=== PATIENT | female | born 1955 | race Caucasian/White ===

== ENCOUNTER 2019-10-04 16:50 | Observation (INO) | payer BC, SELFPAY ==
[2019-10-04] VITALS (8 sets, daily range): BP systolic 87–175; BP diastolic 41–100; PULSE 76–103; RESP 14–22; TEMP 36.2–36.4; O2SAT 90–97
--- NOTE | ~2019-10-04 | US_ITS ---
EXAMINATION: US venous doppler [facility] DATE: 10/06/2019 10:56 INDICATION: Shortness of breath. TECHNIQUE: Grayscale ultrasound images without and with compression and Doppler ultrasound images of the bilateral lower extremity veins were obtained. COMPARISON: Ultrasound 11/13/2014 FINDINGS: The visualized portions of right common femoral vein, profunda (deep) femoral vein, femoral vein, pop liteal vein, peroneal veins, posterior tibial veins, and greater saphenous vein outflow are patent. The visualized portions of left common femoral vein, profunda femoral vein, femoral vein, popliteal v ein, peroneal veins, posterior tibial veins, and greater saphenous vein outflow are patent. There is a moderate-sized left Gutierrez's cyst. IMPRESSION: 1. No deep venous thrombosis. 2. Moderate-sized left Gutierrez's cyst. Reviewed, dictated and finalized at location A.
--- NOTE | ~2019-10-04 | CT_ITS ---
EXAMINATION: CT abdomen pelvis w con EXAM DATE: 10/04/2019 19:28 INDICATION: Low abdominal pain, rectal bleeding. History diverticulitis. TECHNIQUE: Spiral CT of the abdomen and pelvis was performed following intravenous injection of 100 m L Omnipaque 350. Axial, coronal and sagittal images were reviewed. The dose-length product (DLP) fo r this examination was 1465.74 mGy-cm. The exposure was tailored according to patient size (auto mA exposure control), and iterative reconstruction (ASIR) was used as additional dose reduction techniqu e. Comparison is made to prior examination from 05/11/2016. FINDINGS: There is right adrenal gland 1.3 cm lesion unchanged, likely adenoma. Left adrenal gland, liver, spleen, pancreas are unremarkable. Gallbladder is unremarkable. No biliary obstruction. Por melia and splenic veins are patent. Kidneys enhance symmetrically. There is no hydronephrosis. The uterus is anteverted and morphologically normal. The bladder is unremarkable. There is no retroper itoneal or pelvic lymphadenopathy. There is mild scattered arteriosclerotic disease. The appendix is normal. The stomach and small bowel are unremarkable. There is rectosigmoid anastom osis site. There is mild to moderate scattered colonic diverticulosis with mild inflammation of the s igmoid colon, findings consistent with mild acute uncomplicated diverticulitis. No free intraperito ck gas. The heart is normal in size. There are no pericardial or pleural effusions. Left basila r subsegmental atelectasis. Left upper quadrant metallic artifact, surgical clips. There are no oste oblastic or osteolytic lesions identified. IMPRESSION: 1. Findings consistent with mild acute uncomplicated sigmoid diverticulitis. Reviewed, dictated and finalized at location A.
--- NOTE | ~2019-10-04 | CT_ITS ---
CORRECTED REPORT amount of contrast changed from 100cc to 200cc 10/07/2019 [facility] [place]: CTA chest PE protocol EXAM DATE: 10/06/2019 10:18 INDICATION: Shortness of breath. TECHNIQUE: Spiral CTA of the chest (pulmonary arteries) was performed with 200 cc Omnipaque 350 intravenous contrast injection. Images were acquired during the pulmonary arterial phase. Coronal maximum intensity projection 3D- reconstructions were created by the technologist on dedicated workstation. Axial, coronal and sagittal reformatted images were reviewed. The dose-length product (DLP) for this examination was 1048.48 mGy-cm. The exposure was tailored according to patient size (auto mA exposure control), and iterative reconstruction (ASIR) was used as additional dose reduction technique. Comparison is made to prior examination from 07/07/2019. FINDINGS: Pulmonary arteries are well opacified and without intraluminal filling defects. There is lingular subsegmental atelectasis, bilateral lower lobe subsegmental atelectasis. Small amount of left lower lobe endobronchial debris. No thoracic aortic dissection. There are no pleural or pericardial effusions. There is mild to moderate emphysema. There is no mediastinal, hilar or axillary lymphadenopathy. There is no pneumothorax. There is cardiomegaly. Gastroesophageal surgical changes. No evidence of coronary arterial calcification. Upper abdomen is unremarkable. Again there is mixed sclerotic focus within the T7 vertebral body not significantly changed. IMPRESSION: 1. No pulmonary emboli. 2. Interval development of segmental left basilar atelectasis, some endobronchial debris. 3. Right basilar subsegmental atelectasis. 4. Cardiomegaly. 5. Mild to moderate emphysema. 6. Vague T7 sclerotic focus unchanged. Can't exclude osteoblastic disease. Reviewed, dictated and finalized at location B. MTDD IMPRESSION: 1. No pulmonary emboli. 2. Interval development of segmental left basilar atelectasis, some endobronch ial debris. 3. Right basilar subsegmental atelectasis. 4. Cardiomegaly. 5. Mild to moderate emphysema. 6. Vague T7 sclerotic focus unchanged. Can't exclude osteoblastic disease.
--- NOTE | 2019-10-04 17:04 | ED.GIBLEED ---
HPI - GI Bleed General Chief complaint: GI Bleed Stated complaint: GI bleed Time Seen by Provider: 10/04/19 16:50 Source: patient and family Mode of arrival: ambulatory Limitations: no limitations History of Present Illness HPI Narrative: 54-year-old woman comes in today complaining of passing Blood and blood clots today. Patient states that she has had some low abdominal pain that feels like period cramps and gas. she has had some lightheadedness with it. She denies fever, vomiting, diarrhea, hematochezia, melena, and ingestion of blood thinners except ASA 81 mg daily. MD complaint: gross hematochezia Onset (ago): hour(s) (2) Pain Consistency: constant Severity: moderate Relieving factors: none Exacerbating factors: none Associated symptoms: abdominal pain Treatments Prior to Arrival: none Related Data Home Medications Medication Instructions Recorded Confirmed alprazolam 0.5 mg PO PRN 10/04/19 10/04/19 amitriptyline 25 mg PO DAILY 10/04/19 10/04/19 gabapentin 300 mg PO TID 10/04/19 10/04/19 levothyroxine 137 mcg PO DAILY 10/04/19 10/04/19 lovastatin 40 mg PO DAILY 10/04/19 10/04/19 Allergies Allergy/AdvReac Type Severity Reaction Status Date / Time metronidazole AdvReac Unknown CHEMICAL Unverified 11/20/16 14:20 NEUROPATHY Review of Systems Constitutional: Constitutional: Denies chills, Reports fatigue, Denies fever(s) and Reports weakness Eyes: Eyes: Denies change in vision and Denies photophobia ENT: Denies dysphagia, Denies nasal congestion and Denies sore throat Cardiovascular: Cardiovascular: Denies chest pain and Denies radiating jaw, neck or arm pain Respiratory: Respiratory: Reports cough and Denies dyspnea Gastrointestinal: Gastrointestinal: Reports as per HPI, Reports abdominal pain, Denies diarrhea, Denies nausea and Denies vomiting Genitourinary: Genitourinary: Denies nocturia and Denies dysuria Musculoskeletal: Musculoskeletal: Denies arthralgias and Denies joint swelling Integumentary/Breasts: Skin/Breast: Denies pruritus, Denies erythema and Denies rash Neurologic: Denies vertigo, Reports dizziness and Denies syncope Psychiatric: Psychiatric: Denies anxiety and Denies depression Endocrine: Endocrine: Denies polydipsia and Denies polyuria Hematologic/Lymphatic: Hematologic/Lymphatic: Denies easy bleeding and Denies easy bruising Allergic/Immunologic: Allergic/Immunologic: Denies lip swelling and Denies wheezing PMFSH Past Medical History Medical History Anxiety Chronic pain Diverticulitis Dyslipidemia Hypothyroidism Incidental lung nodule LLL Peripheral neuropathy Metronidazole Surgical History Surgical History H/O cervical spine surgery H/O colectomy H/O rotator cuff surgery Right History of gastric stapling Family History Family History Other Family history of malignant neoplasm Hypertension Social History Social History Smoking status: Current every day smoker Alcohol intake: never Substance use: never Living arrangements: with family Exam Const: General: alert Nutritional Appearance: obese Orientation/consciousness: patient oriented x3 Other: moderate acute distress HENMT: Ears: external ears normal, TM's normal bilaterally and EAC's normal Mouth: Yes Normal oral and palatal mucosa present and Yes moist mucous membranes Throat: uvula midline Other: diffuse pharyngeal erythema without masses, swelling or exudate. Eyes: Conjunctivae: conjunctivae normal Pupils: Equal, round and reactive pupils present EOM: EOMs intact bilaterally Neck: Neck: no lymphadenopathy Resp: Effort & Inspection: normal respiratory effort and not labored Auscultation: clear to auscultation bilaterally, no rales, no rhonchi and no
[2019-10-04] MEDS: PANTOPRAZOLE SODIUM IV 40 MG VIAL 80 MG IV PUSH (17:46)
[2019-10-04] MEDS: HYDROMORPHONE HCL 2 MG/ML VIAL 0.5 MG IV PUSH (17:47)
[2019-10-04] MEDS: ONDANSETRON INJ 4 MG/2 ML VIAL IV PUSH (17:47)
[2019-10-04] MEDS: SODIUM CHLORIDE 0.9% IV 1,000 ML 999 ML IV CONT (17:48)
[2019-10-04 18:06] LABS: Basophils Absolute Auto 0.07 K/mm3 (0.00-0.10); Basophils Percent Auto 0.7 % (0.0-1.0); Eosinophils Absolute Auto 0.17 K/mm3 (0.02-0.50); Eosinophils Percent Auto 1.7 % (1.0-6.0); Hematocrit 56.3 % (35.0-49.0); Hemoglobin 18.1 g/dL (12.0-15.0); Immature Granulocyte Absolute 0.03 K/mm3 (0.00-0.00); Immature Granulocyte Percent A 0.3 % (0.0-0.0); Lymphocytes Absolute Auto 2.22 K/mm3 (1.10-4.50); Lymphocytes Percent Auto 21.8 % (18.0-42.0); Mean Corpuscular HGB Conc 32.1 g/dL (32.0-36.0); Mean Corpuscular Hemoglobin 28.7 pg (27.0-31.0); Mean Corpuscular Volume 89.2 fL (78.0-102.0); Mean Platelet Volume 13.2 fl (9.2-11.8); Monocytes Absolute Auto 0.68 K/mm3 (0.10-0.90); Monocytes Percent Auto 6.7 % (2.0-11.0); Neutrophils Percent Auto 68.8 % (50.0-70.0); Platelet Count Result 289 K/mm3 (150-420); Red Blood Count 6.31 M/mm3 (4.20-5.40); Red Cell Distribution Width 14.1 % (11.6-14.4); White Blood Count 10.2 K/mm3 (4.8-10.8)
[2019-10-04 18:42] LABS: Alanine Aminotransferase 15 U/L (14-59); Albumin Level 2.7 g/dL (3.4-5.0); Alkaline Phosphatase 73 U/L (46-116); Anion Gap 8.3 mmol/L (7-16); Aspartate Amino Transferase 16 U/L (15-37); Bilirubin,Total 0.3 mg/dL (0.00-1.00); Blood Urea Nitrogen 12 mg/dL (7-18); Calcium 7.8 mg/dL (8.5-10.1); Carbon Dioxide 31 mmol/L (21-32); Chloride 104 mmol/L (98-108); Estimated CRCL calculation 90 ml/min; Estimated Glomerular Filt Rate > 60; Glucose 93 mg/dL (70-99); Lipase 83 U/L (73-393); Osmolality Calculated 287 mOsm/kg (285-295); Potassium 4.3 mmol/L (3.5-5.1); Sodium 139 mmol/L (136-145); Total Protein 6.9 g/dL (6.4-8.2)
--- NOTE | 2019-10-04 19:06 | PC.NURSE ---
PT TAKEN TO RADIOLOGY VIA WHEELCHAIR FOR CT SCAN AT THIS TIME
[2019-10-04] MEDS: SODIUM CHLORIDE 0.9% IV 1,000 ML 150 ML IV CONT (20:24)
--- NOTE | 2019-10-04 20:45 | PC.NURSE ---
RN REQUESTED OBS BED AT 2001. ROOM 210 PROVIDED BY [employer]. REGISTRATION NOTIFIED. RN ATTEMPTED TO CALL REPORT AT 2016, RN UNAVAILABLE. MELISSA ZURITA RECEIVED REPORT AT 2039
[2019-10-05] VITALS (17 sets, daily range): BP systolic 83–113; BP diastolic 22–60; PULSE 68–98; RESP 16–20; TEMP 36.2–37.1; O2SAT 75–97; BMI 55.6
[2019-10-05] MEDS: SODIUM CHLORIDE 0.9% IV 1,000 ML 999 ML IV CONT (00:19)
[2019-10-05 00:43] LABS: Hematocrit 51.9 % (35.0-49.0); Hemoglobin 15.9 g/dL (12.0-15.0)
[2019-10-05 02:08] LABS: Troponin I < 0.02 ng/mL (0.00-0.056)
[2019-10-05 02:09] LABS: Lactic Acid 0.7 mmol/L (0.4-2.0)
--- NOTE | 2019-10-05 02:38 | ADMGEN ---
This patient, Michelle Dallas, was admitted to 2nd Floor Room 210-2. Patient oriented to hospital policies and general routines including ID bracelet, bed and alarms, visiting hours, pain management, procedures, bathroom and other care routines, personal items, smoking policy, room service/diet, and visiting hours. Valuables includes purse with belongings inside (patient would not say), sweater, clothes, cell phone. Information on how to activate the Rapid Response Team has been discussed. Patient are encouraged to report perceived risks to care and to ask questions if they do not understand what they are told or what they should do.
--- NOTE | 2019-10-05 03:00 | PC.NURSE ---
0236 Dr. Marx gave orders to call him if systolic blood pressures are less than 90.
[2019-10-05] MEDS: SODIUM CHLORIDE 0.9% IV 1,000 ML 150 ML IV CONT ×3 (04:54→19:18)
[2019-10-05 05:11] LABS: Basophils Absolute Auto 0.06 K/mm3 (0.00-0.10); Basophils Percent Auto 0.6 % (0.0-1.0); Eosinophils Absolute Auto 0.15 K/mm3 (0.02-0.50); Eosinophils Percent Auto 1.6 % (1.0-6.0); Hematocrit 51.4 % (35.0-49.0); Hemoglobin 15.6 g/dL (12.0-15.0); Immature Granulocyte Absolute 0.03 K/mm3 (0.00-0.00); Immature Granulocyte Percent A 0.3 % (0.0-0.0); Lymphocytes Absolute Auto 1.42 K/mm3 (1.10-4.50); Lymphocytes Percent Auto 14.9 % (18.0-42.0); Mean Corpuscular HGB Conc 30.4 g/dL (32.0-36.0); Mean Corpuscular Hemoglobin 28.2 pg (27.0-31.0); Mean Corpuscular Volume 92.8 fL (78.0-102.0); Mean Platelet Volume 11.2 fl (9.2-11.8); Monocytes Absolute Auto 0.74 K/mm3 (0.10-0.90); Monocytes Percent Auto 7.8 % (2.0-11.0); Neutrophils Absolute Auto 7.1 K/mm3 (1.7-7.2); Neutrophils Percent Auto 74.8 % (50.0-70.0); Platelet Count Result 223 K/mm3 (150-420); Red Blood Count 5.54 M/mm3 (4.20-5.40); Red Cell Distribution Width 14.1 % (11.6-14.4); White Blood Count 9.5 K/mm3 (4.8-10.8)
[2019-10-05 05:25] LABS: Alanine Aminotransferase 14 U/L (14-59); Albumin Level 2.7 g/dL (3.4-5.0); Alkaline Phosphatase 74 U/L (46-116); Anion Gap 6.7 mmol/L (7-16); Aspartate Amino Transferase 16 U/L (15-37); Bilirubin,Total 0.4 mg/dL (0.00-1.00); Blood Urea Nitrogen 12 mg/dL (7-18); Calcium 7.6 mg/dL (8.5-10.1); Carbon Dioxide 33 mmol/L (21-32); Chloride 103 mmol/L (98-108); Estimated CRCL calculation 75 ml/min; Estimated Glomerular Filt Rate 55; Glucose 109 mg/dL (70-99); Osmolality Calculated 286 mOsm/kg (285-295); Potassium 4.7 mmol/L (3.5-5.1); Sodium 138 mmol/L (136-145); Total Protein 6.8 g/dL (6.4-8.2)
[2019-10-05] MEDS: LEVOTHYROXINE SODIUM 25 MCG TABLET PO (05:42)
[2019-10-05] MEDS: LEVOTHYROXINE SODIUM 112 MCG TABLET PO (05:42)
--- NOTE | 2019-10-05 06:38 | PC.NURSE ---
Patient to/from bathroom with one assist with slightly unsteady gait. Urine yellow. IV NS infusing to site in left thumb without difficulty. Call light in reach.
--- NOTE | 2019-10-05 07:30 | PC.NURSE ---
Taking po fluids well, no stools at this time, no evidence or complaint at pain
--- NOTE | 2019-10-05 07:47 | PC.NURSE ---
noted to have o2 off when entered room for assessment, room air sat 75%, oxygen re applied at 2L NC, increase to 85%, increased oxygen to 3L NC, sats at 90%, loose productive cough at times, fluids infusing, given white soda per request
--- NOTE | 2019-10-05 08:30 | PC.NURSE ---
Tolerated clear liquid breakfast, ate about 50%, no stools at this time, no compalint of pain at this time
[2019-10-05] MEDS: GABAPENTIN 300 MG CAPSULE PO ×3 (09:29→17:43)
[2019-10-05] MEDS: AMITRIPTYLINE HCL 25 MG TABLET PO (09:29)
[2019-10-05] MEDS: LOVASTATIN 20 MG TABLET 40 MG PO (09:29)
--- NOTE | 2019-10-05 09:32 | PM.IMHP ---
H&P: HPI History of Present Illness Chief complaint: GI bleed Narrative: Michelle Dallas is a 64 year old female admitted overnight for GI bleeding with gross hematochezia. Reports abdominal pain, Denies diarrhea, Denies nausea and Denies vomiting. Carolyne was admitted around 5:15 p.m. yesterday evening. Michelle came in complaining of passing blood and blood clots. Patient stated that she has had some low abdominal pain that feels like period cramps and gas. She has had some lightheadedness with it. She denies fever, vomiting, diarrhea, hematochezia, melena, and ingestion of blood thinners except ASA 81 mg daily. Her aspirin is currently held. She was started on IV fluids, IV Zosyn, given a dose of Protonix IV, and started on a clear liquid diet. She is a current smoker. At admission yesterday her heart rate was 103 her SpO2 was 91% and she was placed on 2 L nasal cannula where her SpO2 improved to 97%. This morning her O2 sats showed 75-90% and she was placed on 3 L nasal cannula. This morning when he went to see her; she had a headache, she had some mild left lower quadrant pain with palpitation, and no further output or stools since her home output of bloody diarrhea. She was convinced that her Mucinex that she had been taking for 1-2 weeks for a cold and upper respiratory infection had caused this. I informed her that was not likely the case. We started talking some more and I discovered that she has been using ibuprofen more than once or twice a day on a regular basis for pain control. She also stated that she was told to use tramadol instead of her Vicodin, she was informed by another physician that the Tramadol would be easier on her GI system. I have started her on Protonix IV twice a day, educated her that Tylenol extra-strength and lidocaine patches would be best at this time for pain control. We will continue to use continuous IV hydration at 150 miles an hour to further hydrate her since her CBC and other lab work is showing that she is still not at optimal hydration. Her blood pressures were also low with systolics in the 80s and 90s overnight despite having an admission blood pressure of 158/100. She stated that she did not get any sleep and had a headache because they were checking her blood pressure every 2 hours. Now that her blood pressure has improved we can check her blood pressure every 4 hours. Also continue her IV fluids at 150 ml/ hour and discontinue that for the morning so she does not become fluid overloaded. She stated that years ago when she had the colon resection was the only time she required diuretics. She reports having a colonoscopy with Dr. Garcia approximately 2 years ago and remembers that he said she was clear for having another colonoscopy for 10 years. She believes that Dr. Yumiko Wetzel of [facility] completed her colon resection many years ago, but thinks that the surgeon moved to [facility]. I have ordered CBCs and BMPs every 12 hours starting at 8:00 p.m. tonpadilla, her H&H this morning was 15.6/51.4 her white count was 9.5 and her platelets was 223. her potassium was 4.7 her creatinine was 1.01 her liver function studies were within normal limits and her troponin was normal her lipase was normal at 83. I have also ordered a TSH, Mag, and Phos level. her CT abdomen pelvis showed left basilar atelectasis with moderate scattered diverticulosis and inflammation of the sigmoid colon. As well as evidence of past surgery. The radiologist read this as uncomplicated sigmoid diverticulitis. She told me she had a colon resection around 2013 and gastric stapling in the 1970s or 1980s. No other history of GI bleed or output like this per patient report, and she denies ever vomiting or coughing up blood as well. Ordered her DuoNebs and Incentive Spirometry to improve her atelectasis. She has urine and blood cultures pending, also ordered sputum culture to be collected. Today she has tolerated her clear liquid diet
--- NOTE | 2019-10-05 09:39 | PC.NURSE ---
Resting quietly in bed, sleeping at intervals, no evidence of pain, fluids infusing
[2019-10-05] MEDS: PANTOPRAZOLE SODIUM IV 40 MG VIAL IV PUSH ×2 (10:06→20:29)
--- NOTE | 2019-10-05 10:08 | PC.NURSE ---
Protonix given IVP, no complaints, sleeping, tolerating po fluids, n/v
[2019-10-05] MEDS: BENZONATATE 100 MG CAPSULE 200 MG PO ×3 (10:43→17:43)
[2019-10-05] MEDS: ACETAMINOPHEN 500 MG TABLET 1000 MG PO (10:45)
--- NOTE | 2019-10-05 10:48 | PC.NURSE ---
headache with cough, tylenol given, tolerating oral fluids, no bloody stool, educated on need for sputum sample
--- NOTE | 2019-10-05 11:36 | PC.NURSE ---
SBA up to bathroom, gait steady, uses end of bed to steady self when walking
--- NOTE | 2019-10-05 12:20 | PC.NURSE ---
Tolerating PO fluids, voiding with no BM since admit
[2019-10-05] MEDS: IPRATROPIUM 0.5 MG/ALBUTEROL SULFATE 2.5 MG AMPUL.NEB 3 ML INHALATION ×2 (12:32→17:44)
--- NOTE | 2019-10-05 13:23 | PC.NURSE ---
Ate well for lunch, tolerated po fluids
--- NOTE | 2019-10-05 14:16 | PC.NURSE ---
Tolerating po fluids, sleeping at intervals, did not sleep well through night, fluids infusing, occassional loose productive cough noted
--- NOTE | 2019-10-05 15:34 | PC.NURSE ---
Assisted up to void
--- NOTE | 2019-10-05 16:30 | PC.NURSE ---
napping, no distress, tolerating oral fluids, no bm since admit
--- NOTE | 2019-10-05 17:30 | PC.NURSE ---
Ate 100% of full liquid tray, resting quietly, asked about how blood pressures have been and educated on what was taken throughout the day, no need to take every hour tonight, patient relieved to hear this, did not sleep much due to being woke all night long
--- NOTE | 2019-10-05 18:38 | PC.NURSE ---
Resting in bed, denies needs, fluids infusing, no BM this shift
[2019-10-05 20:08] LABS: Hematocrit 49.7 % (35.0-49.0); Hemoglobin 14.9 g/dL (12.0-15.0); Mean Corpuscular Hemoglobin 28.3 pg (27.0-31.0); Mean Corpuscular Volume 94.5 fL (78.0-102.0); Mean Platelet Volume 11.1 fl (9.2-11.8); Platelet Count Result 204 K/mm3 (150-420); Red Blood Count 5.26 M/mm3 (4.20-5.40); Red Cell Distribution Width 14.2 % (11.6-14.4); White Blood Count 7.8 K/mm3 (4.8-10.8)
[2019-10-05 20:27] LABS: BNP 17.9 pg/mL (0-100)
[2019-10-05 20:30] LABS: Anion Gap 4.3 mmol/L (7-16); Blood Urea Nitrogen 10 mg/dL (7-18); Calcium 7.1 mg/dL (8.5-10.1); Carbon Dioxide 34 mmol/L (21-32); Chloride 103 mmol/L (98-108); Estimated CRCL calculation 75 ml/min; Estimated Glomerular Filt Rate 55; Glucose 110 mg/dL (70-99); Osmolality Calculated 284 mOsm/kg (285-295); Phosphorus 3.1 mg/dL (2.6-4.7); Potassium 4.3 mmol/L (3.5-5.1); Sodium 137 mmol/L (136-145)
[2019-10-05 20:31] LABS: Magnesium 1.9 mg/dL (1.8-2.4); Thyroid Stimulating Hormone 2.76 uIU/mL (0.36-3.74)
--- NOTE | 2019-10-05 21:07 | P.PNCROSS_ITS ---
Event Note Event Note Event Note: For this patient encounter, I reviewed the [employer] documentation, treatment plan, and medical decision making; and I had [id number] time with this patient. Pt. states her LLQ pain felt crampy and resolved after defecation/passing a clot. CT c/w diverticulitis which is being treated (but generally is not attributed to hematochezia). Obese abdomen. No focal LLQ tenderness on exam. Agree with plan of antibiotics and monitoring hgb/hct. Re-eval tomorrow.
[2019-10-06] VITALS (12 sets, daily range): BP systolic 115; BP diastolic 51; PULSE 60–87; RESP 16–20; TEMP 36.9; O2SAT 85–92
[2019-10-06] MEDS: IPRATROPIUM 0.5 MG/ALBUTEROL SULFATE 2.5 MG AMPUL.NEB 3 ML INHALATION ×3 (00:25→12:33)
--- NOTE | 2019-10-06 02:26 | PC.NURSE ---
Patient talking to this nurse about her son dying of drug overdose in November of 2018. Patient says she's still having a really hard time with his loss and would like some information/resources of someone to talk to, maybe to call, when she's really feeling down. This nurse told patient that she would have social worker clinical talk with her today.
[2019-10-06] MEDS: ALPRAZOLAM 0.5 MG TABLET PO (03:16)
--- NOTE | 2019-10-06 03:28 | PC.NURSE ---
Patient complaining of IV site to left thumb hurting badly. No sign of leaks, infiltrates, dislodgement of IV catheter noted. Patient insistent that the IV catheter be removed. Site discontinued per patients request. Catheter intact and no bleeding from site when catheter removed. Pressure held x1 minute and then pressure bandage applied. Patient tolerated well.
[2019-10-06 05:44] LABS: Hematocrit 45.3 % (35.0-49.0); Hemoglobin 13.9 g/dL (12.0-15.0); Mean Corpuscular HGB Conc 30.7 g/dL (32.0-36.0); Mean Corpuscular Hemoglobin 28.4 pg (27.0-31.0); Mean Corpuscular Volume 92.6 fL (78.0-102.0); Mean Platelet Volume 11.4 fl (9.2-11.8); Platelet Count Result 187 K/mm3 (150-420); Red Blood Count 4.89 M/mm3 (4.20-5.40); Red Cell Distribution Width 14.1 % (11.6-14.4); White Blood Count 8.4 K/mm3 (4.8-10.8)
[2019-10-06 06:01] LABS: BNP 53.1 pg/mL (0-100)
[2019-10-06] MEDS: LEVOTHYROXINE SODIUM 25 MCG TABLET PO (06:01)
[2019-10-06] MEDS: LEVOTHYROXINE SODIUM 112 MCG TABLET PO (06:01)
[2019-10-06] MEDS: ACETAMINOPHEN 500 MG TABLET 1000 MG PO (06:04)
--- NOTE | 2019-10-06 06:09 | PC.NURSE ---
Patient given Tylenol 1000mg for headache rated @ 8 on 0-10 scale. Patient took that and scheduled meds without difficulty. Call light in reach.
[2019-10-06 09:14] LABS: D Dimer 1.17 mg/L (0.19-0.50)
--- NOTE | 2019-10-06 09:30 | PC.NURSE ---
Patient transported off of floor via wheelchair for CTA
--- NOTE | 2019-10-06 10:31 | PC.NURSE ---
Patient transported back to floor via wheelchair from xray
[2019-10-06] MEDS: LOVASTATIN 20 MG TABLET 40 MG PO (10:35)
[2019-10-06] MEDS: GABAPENTIN 300 MG CAPSULE PO (10:36)
[2019-10-06] MEDS: BENZONATATE 100 MG CAPSULE 200 MG PO (10:36)
[2019-10-06] MEDS: AMITRIPTYLINE HCL 25 MG TABLET PO (10:36)
[2019-10-06] MEDS: PANTOPRAZOLE SODIUM IV 40 MG VIAL IV PUSH (11:07)
--- NOTE | 2019-10-06 11:14 | HOMEO2EVAL ---
Home Oxygen Evaluation RC: Home Oxygen (O2) Evaluation Start: 10/06/19 08:52 Freq: ONCE Status: Active Protocol: RPE Activity Type Activity Date Activity User E-Sign Co-Sign Detail Recorded Client Recorded Date Recorded By Document 10/06/19 10:55 SJB [id number] 10/06/19 11:14 SJB Document 10/06/19 10:56 SJB [id number] 10/06/19 11:14 SJB Document 10/06/19 10:58 SJB [id number] 10/06/19 11:14 SJB Document 10/06/19 11:05 SJB [id number] 10/06/19 11:14 SJB 10/06/19 10/06/19 10/06/19 10:55 10:56 10:58 Home O2 Evaluation Test Phase Resting Resting Exercise Oxygen Delivery Room Air Nasal Cannula Nasal Cannula Oxygen Flow Rate (L/min) 2 2 Pulse Oximetry (90-100 %) 88 L 92 88 L Pulse Rate (60-100 beats/min) 71 70 78 Activity Tolerance Good Rating of Perceived Dyspnea (PD) +2 Mild, Some Difficulty, Noticeable to the Observer Rate of Perceived Exertion (PE) 9 Very light Ambulation Distance (feet) 100 Home Oxygen Evaluation Comments Treatment Charges O2 Evaluation 10/06/19 11:05 Home O2 Evaluation Test Phase Exercise Oxygen Delivery Nasal Cannula Oxygen Flow Rate (L/min) 3 Pulse Oximetry (90-100 %) 92 Pulse Rate (60-100 beats/min) 83 Activity Tolerance Good Rating of Perceived Dyspnea (PD) +2 Mild, Some Difficulty, Noticeable to the Observer Rate of Perceived Exertion (PE) 12 Ambulation Distance (feet) 300 Home Oxygen Evaluation Comments Walked pushing wheelchair with no rests. Jessica well. PLB encouraged. Oxygen titrated from 2-3 lpm to maintain Sp02 of 92%. Treatment Charges
--- NOTE | 2019-10-06 12:30 | P.DS_ITS ---
DS: Diagnosis Admitting Diagnosis Admitting Diagnosis: Melena Discharge Diagnosis (1) Acute GI bleeding: Onset Date: ~10/04/19 Code(s): K92.2 - Gastrointestinal hemorrhage, unspecified Status: Acute Assessment and Plan: * possibly secondary to internal hemorrhoids versus GI bleed due to ibuprofen * hemoglobin on discharge day 13.9 hematocrit 45.3. * Patient denies abdominal pain at this time . * Patient educated on the use of ibuprofen in GI bleed. * Patient informed that in 2017 colonoscopy indicated internal hemorrhoids. * Hemoglobin currently at 13.9, no obvious bleeding noted. * Contacted Dr. Garcia her GI doctor, would like for patient to call his office and make an appointment. * will repeat a hemoglobin in 2 days and send results to Dr. Garcia and Dr. Cerrato. * Patient tolerating meals. * TSH, Mag in phosphate level within normal limits. * Patient will discharge home with Protonix , Augmentin and probiotic. * Patient with a history of colon resection in 2013 at [facility] * CT abdomen pelvis showed left basilar atelectasis with moderate scattered diverticulosis and inflammation of the sigmoid colon. (2) Diverticulitis: Onset Date: ~10/04/19 Code(s): K57.92 - Diverticulitis of intestine, part unspecified, without perforation or abscess without bleeding Status: Acute Assessment and Plan: * left lower quadrant pain has resolved. * patient will discharge with follow-up appointment with Dr. Garcia. * patient will discharge with Protonix, Augmentin and probiotics * patient instructed to consume a high-fiber diet. * patient instructed to Avoid nuts and peanuts if necessary . (3) Dehydration: Onset Date: ~10/04/19 Code(s): E86.0 - Dehydration Status: Acute Assessment and Plan: * resolved * patient received IV fluid while here * patient tolerating meals (4) Atelectasis, left: Onset Date: Unknown Code(s): J98.11 - Atelectasis Status: Acute Assessment and Plan: * possibly secondary to emphysema patient with discharge with Symbicort and ProAir * current smoker. * patient requires home O2 * BNP within normal limits (5) Emphysema of lung: Code(s): J43.9 - Emphysema, unspecified Status: Acute Assessment and Plan: * CTA a indicates- mild to moderate emphysema. * Patient will discharge with inhaler ProAir and Symbicort * Patient instructed to consult ceramic coater. * Patient will follow-up with PCP. * Home O2 evaluation indicates that patient needs continuous 2-3 L oxygen to maintain sats greater than 90%. * CTA and Doppler negative for PE or DVT. (6) Hypoxia: Code(s): R09.02 - Hypoxemia Status: Acute Assessment and Plan: * secondary to emphysema, patient newly diagnosed * CTA indicates emphysema * patient is a current smoker. * Patient educated on smoking cessation. * Home O2 evaluation completed determined that patient needs 2-3 L nasal cannula continuously. * oxygen ordered. * CTA and Doppler negative for PE or DVT. * Patient was discharged with inhaler. * Patient instructed to follow-up with PCP for pulmonary consult. (7) Hemorrhage: Code(s): R58 - Hemorrhage, not elsewhere classified Status: Acute Assessment and Plan: * patient will follow-up with Dr. Garcia. * Patient will discharge with phenylephrine suppositories. * Repeat hemoglobin hematocrit in 2
--- NOTE | 2019-10-06 12:30 | PM.DS ---
DS: Diagnosis Admitting Diagnosis Admitting Diagnosis: Melena Discharge Diagnosis (1) Acute GI bleeding: Onset Date: ~10/04/19 Code(s): K92.2 - Gastrointestinal hemorrhage, unspecified Status: Acute Assessment and Plan: possibly secondary to internal hemorrhoids versus GI bleed due to ibuprofen hemoglobin on discharge day 13.9 hematocrit 45.3. Patient denies abdominal pain at this time . Patient educated on the use of ibuprofen in GI bleed. Patient informed that in 2017 colonoscopy indicated internal hemorrhoids. Hemoglobin currently at 13.9, no obvious bleeding noted. Contacted Dr. Garcia her GI doctor, would like for patient to call his office and make an appointment. will repeat a hemoglobin in 2 days and send results to Dr. Garcia and Dr. Cerarto. Patient tolerating meals. TSH, Mag in phosphate level within normal limits. Patient will discharge home with Protonix , Augmentin and probiotic. Patient with a history of colon resection in [address] at [facility] CT abdomen pelvis showed left basilar atelectasis with moderate scattered diverticulosis and inflammation of the sigmoid colon. (2) Diverticulitis: Onset Date: ~10/04/19 Code(s): K57.92 - Diverticulitis of intestine, part unspecified, without perforation or abscess without bleeding Status: Acute Assessment and Plan: left lower quadrant pain has resolved. patient will discharge with follow-up appointment with Dr. Garcia. patient will discharge with Protonix, Augmentin and probiotics patient instructed to consume a high-fiber diet. patient instructed to Avoid nuts and peanuts if necessary . (3) Dehydration: Onset Date: ~10/04/19 Code(s): E86.0 - Dehydration Status: Acute Assessment and Plan: resolved patient received IV fluid while here patient tolerating meals (4) Atelectasis, left: Onset Date: Unknown Code(s): J98.11 - Atelectasis Status: Acute Assessment and Plan: possibly secondary to emphysema patient with discharge with Symbicort and ProAir current smoker. patient requires home O2 BNP within normal limits (5) Emphysema of lung: Code(s): J43.9 - Emphysema, unspecified Status: Acute Assessment and Plan: CTA a indicates- mild to moderate emphysema. Patient will discharge with inhaler ProAir and Symbicort Patient instructed to consult warehouse specialist. Patient will follow-up with PCP. Home O2 evaluation indicates that patient needs continuous 2-3 L oxygen to maintain sats greater than 90%. CTA and Doppler negative for PE or DVT. (6) Hypoxia: Code(s): R09.02 - Hypoxemia Status: Acute Assessment and Plan: secondary to emphysema, patient newly diagnosed CTA indicates emphysema patient is a current smoker. Patient educated on smoking cessation. Home O2 evaluation completed determined that patient needs 2-3 L nasal cannula continuously. oxygen ordered. CTA and Doppler negative for PE or DVT. Patient was discharged with inhaler. Patient instructed to follow-up with PCP for pulmonary consult. (7) Hemorrhage: Code(s): R58 - Hemorrhage, not elsewhere classified Status: Acute Assessment and Plan: patient will follow-up with Dr. Garcia. Patient will discharge with phenylephrine suppositories. Repeat hemoglobin hematocrit in 2 of 4 days and send results to Dr. Garcia and Dr. Cerrato DS: Summary Hospital Course Hospital Course: patient H and P from admission on 10/04: Chief complaint: GI bleed Narrative: Michelle Dallas is a 64 year old female admitted overnight for GI bleeding with gross hematochezia. Reports abdominal pain, Denies diarrhea, Denies nausea and Denies vomiting. Carolyne was admitted around 5:15 p.m. yesterday evening. Michelle came in complaining of passing blood and blood clots
--- NOTE | 2019-10-06 14:56 | PC.NURSE ---
Patient resting in bed. Waiting discharge. Call light in reach.
== END 2019-10-06 16:30 | disposition home or self-care (01) ==
LOC: CHSED 16:56 → CHS2ND 20:07
PROVIDERS: Nurse Practitioner; Admitting Provider Emergency Medicine; Emergency Provider Emergency Medicine; PCP Internal Medicine; Visit Provider Emergency Medicine
DX: K92.2 Gastrointestinal hemorrhage, unspecified (principal); K57.32 Diverticulitis of large intestine without perforation or abscess without bleeding; E86.0 Dehydration; R09.02 Hypoxemia; J98.11 Atelectasis; J43.9 Emphysema, unspecified; R06.2 Wheezing; E78.5 Hyperlipidemia, unspecified; F41.9 Anxiety disorder, unspecified; E03.9 Hypothyroidism, unspecified; R91.1 Solitary pulmonary nodule; G62.9 Polyneuropathy, unspecified; F17.200 Nicotine dependence, unspecified, uncomplicated; R06.00 Dyspnea, unspecified
CPT/HCPCS: 36415; 71275; 74177; 80048; 80053; 83605; 83690; 83735; 83880; 84100; 84443; 84484; 85014; 85018; 85025; 85027; 85380; 85610; 85730; 86850; 86900; 86901; 87040; 87070; 87086; 87205; 93005; 93970; 94618; 94640; 96361; 96365; 96366; 96375; 96376; 99285; A9270; C9113; G0378; J1170; J2405; J2543; J7030; Q9965

== ENCOUNTER 2021-10-16 09:41 | Outpatient (CLI) | payer MEDICARE, SELFPAY ==
--- NOTE | ~2021-10-16 | CT_ITS ---
EXAMINATION: CT diagnostic chest w con DATE: 10/16/2021 11:24 INDICATION: Left lower lobe mass TECHNIQUE: Transaxial computed tomographic images of the chest were obtained after the administration of 75 cc of Omnipaque 350 intravenous contrast. The dose-length product (DLP) was 777.68 mGy-cm. Ite rative reconstruction was used. COMPARISON: 10/06/2019, 08/05/2018 FINDINGS: A 4 mm nodule in the superior segment of the left lower lobe is stable since 2019, consiste nt with a benign finding. No new or suspicious pulmonary nodules are identified. There is mild emphys raulito. There is no pleural effusion or pneumothorax. No pathologically enlarged thoracic lymph nodes ar e identified. The heart size is normal. There is moderate thoracic spondylosis. There are partially i cesilia surgical changes at the cervicothoracic junction. Surgical changes are also noted in the stomac h. IMPRESSION: 1. No suspicious pulmonary nodule identified. 2. Mild emphysema. Reviewed, dictated and finalized at location B.
[2021-10-16 10:30] LABS: Estimated Glomerular Filt Rate 47
== END 2021-10-16 09:42 | disposition home or self-care (01) ==
LOC: CHSIMG 09:44
PROVIDERS: PCP Internal Medicine; Visit Provider Internal Medicine
DX: R91.8 Other nonspecific abnormal finding of lung field (principal)
CPT/HCPCS: 71260; Q9967

== ENCOUNTER 2022-01-29 16:03 | Outpatient (CLI) | payer MEDICARE, SELFPAY ==
--- NOTE | 2022-01-29 16:29 | ECG_ITS ---
Measurements Intervals [employer] Rate: 109 P: 64 VT: 197 QRS: 100 QRSD: 85 T: 55 QT: 320 QTc: 432 Interpretive Statements SINUS TACHYCARDIA RIGHT AXIS DEVIATION POOR R WAVE PROGRESSION, ANTERIOR LEADS BORDERLINE T WAVE ABNORMALITY- ANTERIOR LEADS BASELINE ARTIFACT- I, II, III, AVR, AVL, AVF ABNORMAL ECG Electronically Signed On 01-29-2022 16:37:09 CDT by Lloyd Julian D.O.
== END 2022-01-29 16:04 | disposition home or self-care (01) ==
LOC: CHSCARD 16:06
PROVIDERS: PCP Internal Medicine; Visit Provider Internal Medicine
DX: R00.2 Palpitations (principal)
CPT/HCPCS: 93005

== ENCOUNTER 2022-02-24 08:58 | Outpatient (CLI) | payer MEDICARE, SELFPAY ==
--- NOTE | 2022-02-24 10:45 | EST_ITS ---
Patient Info Name: Michelle Dallas Age: 66 years : 1955 Gender: Female Ht: 63 in Wt: 275 lbs BSA: 2.43 m2 HR: 90 bpm BP: 129 / 88 mmHg Technical Quality: Good Exam Date: 02/24/2022 10:58 AM Exam Location: [facility] Patient Status: Outpatient Admit Date: 02/24/2022 Staff Ordering Physician: Sarabjit Cerrato MD Attending Provider: Sarabjit Cerrato MD Exercise Technologist: Connie Gonzalez CRT Exercise Physician: Ramila Knox CEP Exam Type: CA stress kelvin w NM Study Info Indications CP - A nuclear stress test was performed. History/Risk Factors Hypertension: Yes Dyslipidemia: Yes Tobacco Use: Former History/Risk Factors Obesity. Former Smoker. HTN. Summary 1. 1. Negative lexiscan stress test for ischemic ST changes by ECG criteria. 2. 2. Stable hemodynamics throughout the test. 3. 3. Nuclear scan to follow and will be reported separately. Please correlate with it. 4. 4. Patient informed of the above results. Protocol: LEXISCAN Stress ECG Details Stage: REST Duration (min): 2 min : 2 sec HR (bpm): 85 SBP (mmHg): 129 DBP (mmHg): 88 Stage: REST Duration (min): 8 min : 18 sec HR (bpm): 84 SBP (mmHg): 129 DBP (mmHg): 88 Stage: STAGE 1 Duration (min): 1 min : 0 sec HR (bpm): 90 SBP (mmHg): 129 DBP (mmHg): 88 Stage: STAGE 1 Duration (min): 1 min : 3 sec HR (bpm): 91 SBP (mmHg): 129 DBP (mmHg): 88 Stage: RECOVERY Duration (min): 0 min : 56 sec HR (bpm): 93 SBP (mmHg): 122 DBP (mmHg): 68 Stage: RECOVERY Duration (min): 1 min : 56 sec HR (bpm): 90 SBP (mmHg): 112 DBP (mmHg): 70 Stage: RECOVERY Duration (min): 2 min : 56 sec HR (bpm): 87 SBP (mmHg): 110 DBP (mmHg): 71 Stage: RECOVERY Duration (min): 3 min : 56 sec HR (bpm): 87 SBP (mmHg): 105 DBP (mmHg): 70 Stage: RECOVERY Duration (min): 4 min : 56 sec HR (bpm): 86 SBP (mmHg): 102 DBP (mmHg): 71 Stage: RECOVERY Duration (min): 5 min : 56 sec HR (bpm): 88 SBP (mmHg): 93 DBP (mmHg): 70 Stage: RECOVERY Duration (min): 6 min : 8 sec HR (bpm): 89 SBP (mmHg): 93 DBP (mmHg): 70 Rest HR: 84 bpm Peak HR: 95 bpm Rest Sys BP: 129 mmHg Peak Sys BP: 122 mmHg Max Pred HR: 155 bpm % Max Pred HR: 61 % Target HR: 132 bpm Max RPP: 11,590 bpm*mmHg Termination Reason: Completed Protocol Cardiac Symptoms: Headache Total Time: 1 min : 3 sec Rest Garcia BP: 88 mmHg Peak Garcia BP: 68 mmHg Total Dose: 0.4 mg Resting ECG Normal sinus rhythm, RAD, low voltage- precordial leads. Stress ECG No abnormal ST/T wave changes. Arrhythmias No arrhythmias were observed during the examination. Report Signatures
--- NOTE | 2022-02-25 08:25 | WPDCARIOSTRE ---
Nuclear Stress Test INDICATIONS Indications: Chest pain PROCEDURE Procedure Performed: Myocardial Perf Spect-Multi Procedure: Patient underwent a lexiscan stress test and immediately was injected with 33 mCi of cardiolyte. Multiple tomographic images were obtained. These are of good quality. There is evidence of moderate size, moderate severity anterior and anteroapical perfusion defects during stress imaging. A separate resting images were obtained after patient was injected with 10.3 mCi of cardiolyte. Multiple tomographic images were obtained. These are of good quality. There is no evidence of perfusion defects during rest imaging. CONCLUSION Conclusion: 1. Abnormal myocardial perfusion imaging demonstrating a moderate size, moderate severity anterior and anteroapical perfusion defects suggestive of reversible ischemia. 2. Left ventriculogram demonstrates a hyperdynamic left ventricle with ejection fraction of 83% with no wall motion abnormalities. End diastolic volume is small at 55 ml. 3. TID score is normal at 1.1.
== END 2022-02-24 08:59 | disposition home or self-care (01) ==
LOC: CHSIMG 09:01
PROVIDERS: PCP Internal Medicine; Visit Provider Internal Medicine
DX: R07.9 Chest pain, unspecified (principal); I10 Essential (primary) hypertension
CPT/HCPCS: 78452; 93017; A9502; J2785

== ENCOUNTER 2022-08-15 11:50 | Outpatient (CLI) | payer MEDICARE, SELFPAY ==
--- NOTE | ~2022-08-15 | MM_ITS ---
EXAMINATION: MM screening naldo BI w zachary HISTORY: Screening mammogram TECHNIQUE: Craniocaudal and mediolateral oblique 3-D tomosynthesis images were obtained and synthetic 2-D images were generated. CAD analysis was submitted and interpreted. COMPARISON: 06/11/2017 bilateral screening mammogram with tomography BREAST PARENCHYMAL COMPOSITION: The breasts are almost entirely fatty. FINDINGS: There is no evidence of suspicious mass, calcification, or architectural distortion to sugg est malignancy in either breast. There has been no suspicious interval change. IMPRESSION: 1. No mammographic evidence of malignancy. 2. Recommend routine screening mammography in one year. BI-RADS Category 1: Negative Reviewed, dictated and finalized at location B. ZEL TWISTER
--- NOTE | ~2022-08-15 | DEXA_ITS ---
Bone Density Report Name: LUCY ELLIOTT Age: 66 Sex: Female Ethnicity: White Date of : 1955 Indication: postmenopausal; screening for osteoporosis; height loss; inflammatory bowel disease; Referring Provider: Sarabjit Cerrato Study: Bone densitometry was performed. Exam Date: August 15, 2022 Accession number: [id number] Bone Density: Region BMD T-score Z-score Classification AP Spine(L1-L4) 1.201 1.4 3.2 Normal Femoral Neck (Left) 0.715 -1.2 0.4 Osteopenia Total Hip (Left) 0.945 0.0 1.3 Normal Femoral Neck (Right) 0.752 -0.9 0.7 Normal Total Hip (Right) 0.900 -0.3 0.9 Normal Femoral Neck Mean 0.733 -1.0 0.5 Normal Total Hip Mean 0.923 -0.2 1.1 Normal World Health Organization criteria for BMD impression classify patients as: Normal (T-score at or above -1.0), Osteopenia (T-score between -1.0 and -2.5), or Osteoporosis (T-score at or below -2.5). 10-year Fracture Risk(1): Major Osteoporotic Fracture 7.4% Hip Fracture 0.6% Reported Risk Factors: [place] (), Neck BMD=0.715, BMI=42.2 (1) FRAX(R) Version 3.08. Fracture probability calculated for an untreated patient. Fracture probability may be lower if the patient has received treatment. Clinical Information Provided by Patient: Has used the following medications: Vitamin D Has the following medical conditions: Inflammatory bowel diseases Patient maximum height was 65 Menopause Age: 52 No regular weight bearing exercise Does not regularly consume dairy products Drinks caffeinated beverages Onset of menses at age 13 Number of children 4 Impression: The patient has low bone mass, based on the Left Femoral Neck T-score. Discussion: BONE DENSITY IS LOW AT ONE OR MORE SKELETAL SITES. This patient's lowest T-score is low at one or more skeletal sites. It meets the World Health Organization's (WHO) criteria for ?low bone mass? (T-score between -1.0 and -2.5). The patient's 10-year risk of fracture as calculated by FRAX is less than the threshold where pharmacological therapy is recommended by the National Osteoporosis Foundation (NOF). However, all treatment decisions require clinical judgment and consideration of individual patient factors, including patient preferences, comorbidities, previous drug use, risk factors not captured in the FRAX model (e.g., frailty, falls, vitamin D deficiency, increased bone turnover, interval significant decline in bone density) and possible under or overestimation of fracture risk by FRAX. The patient should follow a healthful lifestyle (good nutrition with adequate calcium and vitamin D, and appropriate weight-bearing exercise). Follow-Up: Consider repeating this study in 2 to 3 years to reassess this patient's status, or sooner if there is some new clinica
== END 2022-08-15 11:51 | disposition home or self-care (01) ==
LOC: CHSIMG 11:52
PROVIDERS: PCP Internal Medicine; Visit Provider Internal Medicine
DX: Z12.31 Encounter for screening mammogram for malignant neoplasm of breast (principal); Z78.0 Asymptomatic menopausal state; M85.852 Other specified disorders of bone density and structure, left thigh
CPT/HCPCS: 77063; 77067; 77080

== ENCOUNTER 2023-02-12 09:57 | Outpatient (CLI) | payer MEDICARE, SELFPAY ==
--- NOTE | ~2023-02-12 | CT_ITS ---
Clinical Indication: Left lower lobe mass CT Scan of the Chest with Contrast: Technique: Contiguous sections were acquired throughout the chest after intravenous administration of 75 cc of Omnipaque 350. Dose reduction technique was used on this scan by utilizing automated exposu re control and iterative reconstruction technique. The dose-length product (DLP) was 695.96 mGy-cm. COMPARISON: 10/16/2021 Findings: There is no evidence of any significant mediastinal, hilar or axillary lymphadenopathy. There is no evidence of aortic dissection or aneurysm. There is no evidence of pleural or pericardial effusion. Stable small left lower lobe pulmonary nodule.. Images through the upper abdomen reveal no abnormalities. Impression: Stable small left lower lobe pulmonary nodule. Reviewed, dictated and finalized at location . Impression: Stable small left lower lobe pulmonary nodule.
[2023-02-12 10:24] LABS: Estimated Glomerular Filt Rate 59
== END 2023-02-12 09:58 | disposition home or self-care (01) ==
PROVIDERS: PCP Internal Medicine; Visit Provider Internal Medicine
DX: R19.04 Left lower quadrant abdominal swelling, mass and lump (principal); R91.1 Solitary pulmonary nodule
CPT/HCPCS: 71260; Q9967

== ENCOUNTER 2023-08-26 12:22 | Outpatient (CLI) | payer MEDICARE, SELFPAY ==
--- NOTE | ~2023-08-26 | MM_ITS ---
EXAMINATION: MM screening naldo BI w zachary HISTORY: Screening TECHNIQUE: Craniocaudal and mediolateral oblique 3-D tomosynthesis images were obtained and synthetic 2-D images were generated. CAD analysis was submitted and interpreted. COMPARISON: 08/15/2022 BREAST PARENCHYMAL COMPOSITION: The breasts are almost entirely fatty. FINDINGS: There is no evidence of suspicious mass, calcification, or architectural distortion to sugg est malignancy in either breast. There has been no suspicious interval change. IMPRESSION: 1. No mammographic evidence of malignancy. 2. Recommend routine screening mammography in one year. BI-RADS Category 1: Negative Reviewed, dictated and finalized at location A. CART ATTENDANT
== END 2023-08-26 12:23 | disposition home or self-care (01) ==
PROVIDERS: PCP Internal Medicine; Visit Provider Internal Medicine
DX: Z12.31 Encounter for screening mammogram for malignant neoplasm of breast (principal)
CPT/HCPCS: 77063; 77067

== ENCOUNTER 2024-04-28 09:53 | Outpatient (CLI) | payer MEDICARE, SELFPAY ==
--- NOTE | ~2024-04-28 | CT_ITS ---
CT Scan of the Chest without Contrast: Clinical Indication: Lung cancer screening, nicotine dependence Technique: Contiguous sections were acquired throughout the chest without intravenous contrast. Dose reduction technique was used on this scan by utilizing automated exposure control and iterative recon struction technique. The dose-length product (DLP) was 479.59 mGy-cm. COMPARISON: 02/12/2023 Findings: There is no evidence of any significant mediastinal, hilar or axillary lymphadenopathy. The mediastin al soft tissues appear normal. There is no evidence of pleural or pericardial effusion. Probable focal left basilar scarring, unchanged. No pulmonary nodule evident otherwise. Images through the upper abdomen reveal no abnormalities. Impression: Lung RADS 2: Benign appearance. 12 month follow-up screening CT advised. Reviewed, dictated and finalized at location . Impression: Lung RADS 2: Benign appearance. 12 month follow-up screening CT advised.
== END 2024-04-28 09:54 | disposition home or self-care (01) ==
LOC: CHSIMG 09:55
PROVIDERS: PCP Internal Medicine; Visit Provider Internal Medicine
DX: Z12.2 Encounter for screening for malignant neoplasm of respiratory organs (principal); Z87.891 Personal history of nicotine dependence; R06.02 Shortness of breath
CPT/HCPCS: 71271

== ENCOUNTER 2024-09-21 11:35 | Outpatient (CLI) | payer MEDICARE, SELFPAY ==
--- NOTE | ~2024-09-21 | MM_ITS ---
EXAMINATION: MM screening naldo BI w zachary HISTORY: Screening mammogram, family history of breast cancer in her mother. TECHNIQUE: Craniocaudal and mediolateral oblique 3-D tomosynthesis images were obtained and synthetic 2-D images were generated. CAD analysis was submitted and interpreted. COMPARISON: 08/26/2023, 08/15/2022 BREAST PARENCHYMAL COMPOSITION:Not Dense. The breasts are almost entirely fatty FINDINGS: No suspicious mass, calcification, or architectural distortion are identified in either simran ast to suggest malignancy. There has been no suspicious interval change. IMPRESSION: No mammographic evidence of malignancy. Recommend routine screening mammography in one year. BI-RADS Category 1: Negative Reviewed, dictated and finalized at location . ON SPECIALIST
--- OUTSIDE RECORDS SUMMARY | 2024-09-21 13:31 | XMS_ITS | Referral Summary ---
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 Medications ALPRAZolam (XANAX) 0.5 mg tablet 3 (three) times a day as needed 0 9 Active traMADol (ULTRAM) 50 mg tablet every 4 (four) hours as needed 0 8 Active aspirin 81 mg enteric coated tabletIndicatio ns:stop 5 days before surgery Take 81 mg by mouth daily Active lovastatin (MEVACOR) 20 mg tablet Take 20 mg by mouth nightly Active amitriptyline (ELAVIL) 25 mg tablet Take 25 mg by mouth nightly Active gabapentin (NEURONTIN) 300 mg capsule Take 600 mg by mouth 3 (three) times a day Active levothyroxine (SYNTHROID, LEVOTHROID) 137 mcg tablet Take 137 mcg by mouth bread dumper before breakfast Active cyclobenzaprine (FLEXERIL) 10 mg tablet Take 10 mg by mouth 3 (three) times a day as needed for muscle spasms Active HYDROcodone-nicole taminophen (NORCO) 5-325 mg per tabletIndicatio ns:Pain Take 1 tablet every 6 hours as needed for pain 30 tablet 9 Active acetaminophen-c odeine (TYLENOL with CODEINE #3) 300-30 mg per tablet 1 every 6 hours as needed for pain 28 tablet 9 Active albuterol HFA (PROVENTIL HFA,VENTOLIN HFA,PROAIR HFA) 90 mcg/actuation inhaler Inhale 2 puffs every 4 (four) hours as needed for wheezing 1 Inhaler 1 0 Active fluticasone furoate-vilante roL (BREO ELLIPTA) 100-25 mcg/dose diskus inhaler Inhale 1 puff daily Rinse mouth with water after use. Do not swallow. 60 each 1 0 Active Active Problems Problem Noted Date Diagnosed Date Gastrointestinal hemorrhage 10/07/2019 IVERSON (dyspnea on exertion) 10/07/2019 Cough 10/07/2019 Sacral wound 10/07/2019 Hypothyroid 10/07/2019 Impingement syndrome of right shoulder 9 Overview (09/09/2018): Added automatically from request for surgery [id number] Primary osteoarthritis of right shoulder 019 Overview (09/09/2018): Added automatically from request for surgery [id number] Incomplete tear of right rotator cuff 09/09/2018 Overview (09/09/2018): Added automatically from request for surgery [id number] Skin sensation disturbance 08/29/2013 Overview (10/29/2016): SKIN SENSATION DISTURB Diverticulitis Social History Tobacco Use Types Packs/Day Years Used Date Smoking Tobacco: Every Day Cigarettes 1 40 Smokeless Tobacco: Never Tobacco Cessation:Ready to Q uit: Yes; Counseling Given: Yes Alcohol Use Standard Drinks/Week Comments Not Currently 0 (1 standard drink = 0.6 oz pur e alcohol) Comments Unknown Sex and Gender Information Value Date Recorded Sex Assigned at Not on file 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 Gender Identity Not on file Sexual Orientation Not on file Last Filed Vital Signs Vital Sign Reading Time Taken Comments Blood Pressure 124/63 10/09/2019 11:56 AM CDT Pulse 61 10/09/2019 11:56 AM CDT Temperature 36.5 C (97.7 F) 10/09/2019 11:56 AM CDT Respiratory Rate 18 10/09/2019 11:5 6 AM CDT Oxygen Saturation 97% 10/09/2019 11: 56 AM CDT Inhaled Oxygen Concentration - - Weight 153.1 kg (337 lb 8.4 oz) 10/07/2019 5:15 AM CDT Height 165.1 cm (5' 5 ) 10/07/2019 5:15 AM CDT Body Mass Index 56.17 10/07/2019 5:15 AM CDT Plan of Treatment Not on file [place] For more information, please contact: [phone] * Full Code (Latest Code Status on File) Date Activated Date Inactivated Comments 10/07/2019 5:24 AM 10/09/2019 7:50 PM Care Teams Nuclear Medicine Chief Technologist Relationship Specialty Start Date End Date Sarabjit Cerrato MD [address] [place] [address] PCP - General 04/01/13 Lucius Garcia MD [address] [place] [address] Referring Physician Gastroenterology 10/09/19
--- OUTSIDE RECORDS SUMMARY | 2024-09-21 13:31 | XMS_ITS | Patient Health Summary ---
Author Organization [facility] Address [address] [place] [address] Care Team Providers Care Booking Prizer Name Role Phone Unavailable Primary Care Provider Unavailabl e Note from [facility],non-owned Affiliates and Associated Physician Practices is amultiple site organization consisting of ambulatory clinics and hospital sitesin [place], [place], [place]. This disclosure is being madepursuant to the Care Everywhere program and may not contain all information available regarding this patient. Last updated 18.[facility] Social History Tobacco Use Types Packs/Day Years Used Date Smoking Tobacco: Never Assessed Sex and Gender Information Value Date Recorded Sex Assigned at Not on file Gender Identity Not on file Sexual Orientation Not on file
--- OUTSIDE RECORDS SUMMARY | 2024-09-21 13:31 | XMS_ITS | Clinical Summary ---
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 Active cyclobenzaprine (FLEXERIL) 10 mg [...] (09/09/2018): Added automatically from request for surgery [id number] Primary osteoarthritis of right shoulder 019 Overview (09/09/2018): Added automatically from request for surgery [id number] Incomplete tear of right rotator cuff 09/09/2018 Overview (09/09/2018): Added automatically from request for surgery [id number] Skin sensation disturbance 08/29/2013 Overview (10/29/2016): SKIN SENSATION DISTURB Diverticulitis Surgical History Surgery Date Site/Laterality Comments OTHER SURGICAL HISTORY Gastric stapling BACK SURGERY patient has not had back surgery 10/05/18 OTHER SURGICAL HISTORY disc replacement (x2) BOWEL RESECTION bowel resection OTHER SURGICAL HISTORY stomach staple OTHER SURGICAL HISTORY 07/27/2012 - 07/26/2013 Kevan assisted with conversion to open sigmoidectomy/ Extensive adhesiolysis 05/2013 OTHER SURGICAL HISTORY Exp abd wound, Debridement of large abscess cavity , Removal of retained sutures. 07/2013 Medical History Medical History Date Comments Hyperlipidemia Hyperlipidemia Disorder of thyroid Thyroid dise ase Hypertension Hypertension; im proved and no medications since 2013 Diverticulitis of colon Hypothyroidism Neuropathy (CMS/HCC) peripheral feet Family History Medical History Relation Name Comments Diabetes Father Diabetes mellit us; Heart disease Father Heart disease; Hypertension Father Hypertension; Breast cancer Mother Cancer, breast ; Cancer Mother Cancer; Diabetes Mother Diabetes mellit us; Hypertension Mother Hypertension; Throat cancer Mother Cancer, throat ; Cancer Other Family history of Cancer; Mitral valve prolapse Sister Multip le myeloma; Relation Name Status Comments Father Mother Other Sister Social History Tobacco Use Types Packs/Day Years [...] on file 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 Gender Identity Not on file Sexual Orientation Not on file Obstetrics History Last Filed Vital Signs Vital Sign Reading [...] on file [place] Advance Directives For more information, please contact: [phone] * Full Code (Latest Code Status on File) Date Activated Date Inactivated Comments 10/07/2019 5:24 AM 10/09/2019 7:50 PM Care Teams Nanofabrication Specialist Relationship Specialty Start Date End Date Sarabjit Cerrato MD [address] [place] [address] PCP - General 04/01/13 Lucius Garcia MD [address] [place] [address] Referring Physician Gastroenterology 10/09/19
--- OUTSIDE RECORDS SUMMARY | 2024-09-21 13:31 | XMS_ITS | Referral Summary ---
Author Organization [facility] Address [address] [place] [address] Care Team Providers Care Healthcare Network Consultant Name Role Phone Unavailable Primary Care Provider Unavailabl e Source Comments [facility],non-owned Affiliates and Associated Physician Practices is amultiple site organization consisting of ambulatory clinics and hospital sitesin [place], [place] and [place]. This disclosure is being madepursuant to the Care Everywhere program and may not contain all information available regarding this patient. Last updated 18.[facility] Social History Tobacco Use Types Packs/Day Years Used Date Smoking Tobacco: Never Assessed Sex and Gender Information Value Date Recorded Sex Assigned at Not on file Gender Identity Not on file Sexual Orientation Not on file Plan of Treatment Not on file
--- OUTSIDE RECORDS SUMMARY | 2024-09-21 13:31 | XMS_ITS | Clinical Summary ---
Author Organization [facility] [employer] Address [address] [place] [address] Care Team Providers Care Product Safety Officer Name Role Phone Unavailable Primary Care Provider Unavailabl e Source Comments [facility] [employer],non-owned Affiliates and Associated Physician Practices is amultiple site organization consisting of ambulatory clinics and hospital sitesin [place], [place], [place] and [place]. This disclosure is being madepursuant to the Care Everywhere program and may not contain all information available regarding this patient. Last updated 18.[facility] [employer] Social History Tobacco Use Types Packs/Day Years Used Date Smoking Tobacco: Never Assessed Sex and Gender Information Value Date Recorded Sex Assigned at Not on file Gender Identity Not on file Sexual Orientation Not on file Plan of Treatment Health Maintenance Due Date Last Done Comments BONE DENSITY TESTING 1955 COLOGUARD (AGES 45-75) - COL ON CA SCREENING 1955 COLON MONITORING 1955 COLONOSCOPY - COLON CA SCREENING 1955 CT COLONOGRAPHY - COLON CA SCREENING 1955 Colorectal Cancer Screening 1955 FIT - COLON CA SCREENING 1955 FLEX SIG - COLON CA SCREENING 1955 LIPID TESTING 1955 MAMMOGRAM 1955 HEPATITIS C SCREENING 08/12/1974 DTAP/TDAP/TD VACCINES (1 - Tdap) 1975 PNEUMOCOCCAL VACCINE 50+ (1 of 1 - PCV) 2006 ZOSTER VACCINE (1 of 2) 2006 COVID-19 VACCINE ( - 2023-2 5 season) 2024 INFLUENZA VACCINE (#1) 2024 DEPRESSION SCREENING 07/27/2024 Respiratory Syncytial Virus (RSV) Vaccine Pt: or over 60 yrs (1 - 1-dose 75+ series) 2031 HEPATITIS B VACCINE Aged Out No longe r eligible based on patient's age to complete this topic HIB VACCINE Aged Out No longer eligi ble based on patient's age to complete this topic HPV VACCINE Aged Out No longer eligi ble based on patient's age to complete this topic MENINGOCOCCAL (Group B) VACCINE Aged Out No longer eligible based on patient's age to complete this topic MENINGOCOCCAL VACCINE Aged Out No kenyon janice eligible based on patient's age to complete this topic
== END 2024-09-21 11:36 | disposition home or self-care (01) ==
PROVIDERS: PCP Internal Medicine; Visit Provider Internal Medicine
DX: Z12.31 Encounter for screening mammogram for malignant neoplasm of breast (principal)
CPT/HCPCS: 77063; 77067

== ENCOUNTER 2025-01-25 09:27 | Outpatient (CLI) | payer MEDICARE, SELFPAY ==
--- NOTE | ~2025-01-25 | DEXA_ITS ---
Bone Density Report Name: LUCY ELLIOTT Age: 69 Sex: Female Ethnicity: White Date of : 1955 Indication: postmenopausal; screening for osteoporosis; height loss; inflammatory bowel disease; prior fracture; Referring Provider: Sarabjit Cerrato Study: Bone densitometry was performed. Exam Date: January 25, 2025 Accession number: [id number] Bone Density: Region BMD T-score Z-score Classification AP Spine(L1-L4) 1.214 1.5 3.5 Normal Femoral Neck (Left) 0.762 -0.8 0.9 Normal Total Hip (Left) 0.950 0.1 1.5 Normal Femoral Neck (Right) 0.664 -1.7 0.0 Osteopenia Total Hip (Right) 0.921 -0.2 1.2 Normal Femoral Neck Mean 0.713 -1.2 0.5 Osteopenia Total Hip Mean 0.935 -0.1 1.4 Normal World Health Organization criteria for BMD impression classify patients as: Normal (T-score at or above -1.0), Osteopenia (T-score between -1.0 and -2.5), or Osteoporosis (T-score at or below -2.5). 10-year Fracture Risk(1): Major Osteoporotic Fracture 14% Hip Fracture 1.7% Reported Risk Factors: [place] (), Neck BMD=0.664, BMI=42.2, previous fracture (1) FRAX(R) Version 3.08. Fracture probability calculated for an untreated patient. Fracture probability may be lower if the patient has received treatment. Previous Exams: Region Exam Age BMD T-score BMD Change BMD Change Date g/cm2 vs Baseline vs Previous AP Spine (L1-L4) 01/25/2025 69 1.214 1.5 0.013 (1.1%) 0.013 (1.1%) 08/15/2022 66 1.201 1.4 Total Hip(Left) 01/25/2025 69 0.950 0.1 0.004 (0.5%) 0.004 (0.5%) 08/15/2022 66 0.945 0.0 Total Hip(Right) 01/25/2025 69 0.921 -0.2 0.021 (2.3%) 0.021 (2.3%) 08/15/2022 66 0.900 -0.3 *Denotes significance at 95% confidence level, LSC for AP Spine = 0.022 g/cm2, LSC for Total Hip = 0.027 g/cm2 Clinical Information Provided by Patient: Has had a low trauma fracture Has used the following medications: Vitamin D Has the following medical conditions: Inflammatory bowel diseases Patient maximum height was 65. Menopause Age: 52 No regular weight bearing exercise Drinks caffeinated beverages Onset of menses at age 12 Number of children 4 Impression: The patient has low bone mass, based on the Right Femoral Neck T-score. The patient has risk factors, including: previous fracture. No significant bone loss was observed. Discussion: BONE DENSITY IS LOW AT ONE OR MORE SKELETAL SITES. This patient's lowest T-score is low at one or more skeletal sites. It meets the World Health Organization's (WHO) criteria for ?low bone mass? (T-score between -1.0 and -2.5). The patient's 10-year risk of fracture as calculated by FRAX is less than the threshold where pharmacological therapy is recommended by the National Osteoporosis Foundation (NOF). However, all treatment decisions require clinical judgment and consideration of individual patient factors, including patient preferences, comorbidities, previous drug use, risk factors not captured in the FRAX model (e.g., frailty, falls, vitamin D deficiency, increased bone turnover, interval significant decline in bone density) and possible under or overestimation of fracture risk by FRAX. The patient should follow a healthful lifestyle (good nutrition with adequate calcium and vitamin D, and appropriate weight-bearing exercise). Follow-Up: Consider repeating this study in 2 to 3 years to reassess this patient's status, or sooner if there is some new clinical indication. Reported by: KURT on 01/25/2025 10:16:00 AM. Reviewed, dictated and finalized at location A.
--- NOTE | ~2025-01-25 | US_ITS ---
EXAMINATION: US carotid duplex BI DATE: 01/25/2025 14:02 CDT INDICATION: Carotid stenosis TECHNIQUE: Grayscale, color Doppler, and pulsed Doppler images of the cervical carotid arteries were obtained. The degree of vessel stenosis is placed in one of the following categories: normal, <50%, 50-69%, >=7 0% but less than near-occlusion, near-occlusion, or total occlusion. Note that percent stenosis relative to normal distal artery lumen diameter is indirectly measured fro m velocity measurements as described originally by Sulaiman, et al. Radiology 2003; 229:340-346 and upda lucita by Duarte Neil et al STROKE 2012;43(3);915-921. COMPARISON: None FINDINGS: There is mild atherosclerosis of both carotid arteries. Peak systolic velocity (in cm/s) is detailed below RIGHT: Right common carotid artery (CCA): 85 cm/s. Right internal carotid artery (ICA) PSV: 83 cm/s. Right ICA end-diastolic velocity (EDV): 27 cm/s. Right ICA/CCA PSV ratio is 1.0. Right external carotid artery (ECA): 65cm/s. There is antegrade flow in the right vertebral artery LEFT: Left common carotid artery (CCA): 78 cm/s. Left internal carotid artery (ICA) PSV: 88 cm/s. Left ICA end-diastolic velocity (EDV): 27 cm/s. Left ICA/CCA PSV ratio is 1.1. Left external carotid artery (ECA): 68cm/s. There is antegrade flow in the left vertebral artery. IMPRESSION: 1. Less than 50% stenosis in the right internal carotid artery. 2. Less than 50% stenosis in the left internal carotid artery. Reviewed, dictated and finalized at location A.
--- OUTSIDE RECORDS SUMMARY | 2025-01-25 09:44 | XMS_ITS | Clinical Summary ---
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 Medications ALPRAZolam (XANAX) 0.5 mg tablet 3 [...] mcg tablet Take 137 mcg by mouth bilingual school psychologist before breakfast Active cyclobenzaprine (FLEXERIL) 10 mg [...] (09/09/2018): Added automatically from request for surgery [id number] Primary osteoarthritis of right shoulder 019 Overview (09/09/2018): Added automatically from request for surgery [id number] Incomplete tear of right rotator cuff 09/09/2018 Overview (09/09/2018): Added automatically from request for surgery [id number] Skin sensation disturbance 08/29/2013 Overview (10/29/2016): SKIN [...] since 2013 Diverticulitis of colon Hypothyroidism Neuropathy peripheral feet Family History Medical History Relation [...] on file 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 Gender Identity Not on file Sexual Orientation [...] 5:15 AM CDT Height 165.1 cm (5' 5) 10/07/2019 5:15 AM CDT Body Mass Index 56.17 10/07/2019 5:15 AM CDT Plan of Treatment Not on file [place] Advance Directives For more information, please contact: [phone] * Full Code (Latest Code Status on File) Date Activated Date Inactivated Comments 10/07/2019 5:24 AM 10/09/2019 7:50 PM Care Teams Home Care Administrator Relationship Specialty Start Date End Date Sarabjit Cerrato MD [address] [place] [address] PCP - General 04/01/13 Lucius Garcia MD [address] [place] [address] Referring Physician Gastroenterology 10/09/19
--- OUTSIDE RECORDS SUMMARY | 2025-01-25 09:44 | XMS_ITS | Referral Summary ---
Author Organization [facility] [address] Address [address] [place] [address] Phone Care Team Providers Care Consumer Recruiter Name Role Phone Sarabjit Cerrato MD Primary Care Provider + [phone] Lucius Garcia MD Unavailable Allergies Active Allergy Reactions Criticality Noted Date [...] mcg tablet Take 137 mcg by mouth clinical documentation consultant before breakfast Active cyclobenzaprine (FLEXERIL) 10 mg [...] (09/09/2018): Added automatically from request for surgery [id number] Primary osteoarthritis of right shoulder 019 Overview (09/09/2018): Added automatically from request for surgery [id number] Incomplete tear of right rotator cuff 09/09/2018 Overview (09/09/2018): Added automatically from request for surgery [id number] Skin sensation disturbance 08/29/2013 Overview (10/29/2016): SKIN [...] on file 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
--- OUTSIDE RECORDS SUMMARY | 2025-01-25 09:44 | XMS_ITS | Clinical Summary ---
Author Organization [facility] [employer] Address [address] [place] [address] Care Team Providers Care Order Checker Packer Processer Name Role Phone Unavailable Primary Care Provider Unavailabl e Source Comments [facility] [employer],non-owned Affiliates and Associated Physician Practices is amultiple site organization consisting of ambulatory clinics and hospital sitesin [place], [place], [place] and [place]. This disclosure is being madepursuant to the Care Everywhere program and may not contain all information available regarding this patient. 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
[2025-01-25 09:54] LABS: Hematocrit 56.8 % (35.0-42.0); Hemoglobin 16.9 g/dL (11.7-13.8); Immature Granulocyte Percent A 0.4 % (0.0-0.0); Lymphocytes Absolute Auto 1.83 K/mm3 (1.10-4.50); Mean Corpuscular HGB Conc 29.8 g/dL (32-36); Mean Corpuscular Hemoglobin 26.4 pg (27.0-31.0); Mean Corpuscular Volume 88.8 fL (78.0-102.0); Nucleated Red Blood Cells Absolute Auto 0.00 K/mm3 (0.00-0.00); Nucleated Red Blood Cells Perc 0.0 % (0-0.0); Platelet Count Result 282 K/mm3 (150-420); Red Blood Count 6.40 M/mm3 (4.20-5.40); White Blood Count 8.5 K/mm3 (4.8-10.8)
[2025-01-25 10:08] LABS: Add Urine Microscopic? YES; Appearance Urine Clear (Clear); Glucose Urine UA Negative (Negative); Leukocyte Esterase Ur Trace LEU/UL (Negative); Nitrate Urine Negative (Negative); Specific Grav Ur 1.025 (1.010-1.020)
[2025-01-25 10:14] LABS: Hemoglobin A1C 5.7 % (<5.7)
[2025-01-25 10:27] LABS: Alanine Aminotransferase 15 U/L (6-35); Albumin Level 4.0 g/dL (3.5-5.1); Alkaline Phosphatase 98 U/L (38-126); Anion Gap 6 mmol/L (4-12); Aspartate Amino Transferase 26 U/L (14-36); Bilirubin,Total 0.7 mg/dL (0.2-1.3); Blood Urea Nitrogen 14 mg/dL (7-17); Calcium 8.7 mg/dL (8.4-10.2); Carbon Dioxide 29 mmol/L (22-30); Chloride 101 mmol/L (98-107); Cholesterol 169 mg/dL (0-200); Creatine Kinase 37 U/L (30-135); Estimated Glomerular Filt Rate > 60; Glucose 105 mg/dL (65-110); HDL Direct 60 mg/dL; Iron 95 ug/dL (37-170); Osmolality Calculated 282 mOsm/kg (285-295); Potassium 4.8 mmol/L (3.4-5.0); Sodium 136 mmol/L (137-145); Total Protein 7.4 g/dL (6.3-8.2); Triglycerides 155 mg/dL (<150)
[2025-01-25 10:44] LABS: Free T4 Free Thyroxine 1.82 ng/dL (0.78-2.19)
[2025-01-25 10:56] LABS: Free T3 4.22 pg/mL (2.18-3.98)
[2025-01-25 10:58] LABS: Thyroid Stimulating Hormone 0.266 uIU/mL (0.465-4.680)
[2025-01-25 11:02] LABS: Ferritin 25.50 ng/mL (11.1-264)
[2025-01-25 11:17] LABS: Vitamin B12 456.0 pg/mL (239-931)
== END 2025-01-25 09:28 | disposition home or self-care (01) ==
PROVIDERS: PCP Internal Medicine; Visit Provider Internal Medicine
DX: M81.0 Age-related osteoporosis without current pathological fracture (principal); I65.23 Occlusion and stenosis of bilateral carotid arteries; E03.4 Atrophy of thyroid (acquired); R73.01 Impaired fasting glucose; E78.2 Mixed hyperlipidemia; E55.9 Vitamin D deficiency, unspecified; G62.9 Polyneuropathy, unspecified; R53.82 Chronic fatigue, unspecified; M85.89 Other specified disorders of bone density and structure, multiple sites; Z78.0 Asymptomatic menopausal state; R71.8 Other abnormality of red blood cells; R79.9 Abnormal finding of blood chemistry, unspecified
CPT/HCPCS: 36415; 77080; 80053; 80061; 81001; 82306; 82550; 82607; 82728; 83036; 83540; 84439; 84443; 84481; 85025; 93880

== ENCOUNTER 2025-05-04 10:14 | Outpatient (CLI) | payer MEDICARE, SELFPAY ==
[2025-05-04 10:36] LABS: Hematocrit 55.2 % (35.0-42.0); Hemoglobin 16.7 g/dL (11.7-13.8); Mean Corpuscular HGB Conc 30.3 g/dL (32-36); Mean Corpuscular Hemoglobin 27.7 pg (27.0-31.0); Mean Corpuscular Volume 91.7 fL (78.0-102.0); Platelet Count Result 293 K/mm3 (150-420); Red Blood Count 6.02 M/mm3 (4.20-5.40); White Blood Count 9.5 K/mm3 (4.8-10.8)
[2025-05-04 11:39] LABS: Alanine Aminotransferase 15 U/L (6-35); Albumin Level 4.2 g/dL (3.5-5.1); Alkaline Phosphatase 91 U/L (38-126); Anion Gap 12 mmol/L (4-12); Aspartate Amino Transferase 27 U/L (14-36); Bilirubin,Total 0.7 mg/dL (0.2-1.3); Blood Urea Nitrogen 14 mg/dL (7-17); Calcium 9.6 mg/dL (8.4-10.2); Carbon Dioxide 31 mmol/L (22-30); Chloride 96 mmol/L (98-107); Estimated Glomerular Filt Rate > 60; Glucose 104 mg/dL (65-110); Iron 104 ug/dL (37-170); Osmolality Calculated 288 mOsm/kg (285-295); Potassium 4.9 mmol/L (3.4-5.0); Sodium 139 mmol/L (137-145); Total Protein 10.0 g/dL (6.3-8.2)
[2025-05-04 11:56] LABS: Free T3 3.59 pg/mL (2.18-3.98)
[2025-05-04 11:58] LABS: Free T4 Free Thyroxine 1.51 ng/dL (0.78-2.19)
[2025-05-04 12:11] LABS: Thyroid Stimulating Hormone 0.817 uIU/mL (0.465-4.680)
[2025-05-04 12:15] LABS: Ferritin 35.20 ng/mL (11.1-264)
== END 2025-05-04 10:15 | disposition home or self-care (01) ==
LOC: CHSLAB 10:16
PROVIDERS: PCP Internal Medicine; Visit Provider Internal Medicine
DX: E55.9 Vitamin D deficiency, unspecified (principal); E03.4 Atrophy of thyroid (acquired); D45 Polycythemia vera
CPT/HCPCS: 36415; 80053; 82306; 82375; 82668; 82728; 83540; 84439; 84443; 84481; 85027

== ENCOUNTER 2025-06-20 07:56 | Outpatient (CLI) | payer MEDICARE, SELFPAY ==
--- OUTSIDE RECORDS SUMMARY | 2025-06-20 08:02 | XMS_ITS | Clinical Summary ---
Author Organization [facility] [address] Address [address] [place] [address] Phone Care Team Providers Care Storm Window Installer Name Role Phone Sarabjit Cerrato MD Primary Care Provider + [phone] Lucius Garcia MD Unavailable [phone] Allergies Active Allergy Reactions Criticality Noted [...] mcg tablet Take 137 mcg by mouth early childhood before breakfast Active cyclobenzaprine (FLEXERIL) 10 mg [...] (09/09/2018): Added automatically from request for surgery [id number] Primary osteoarthritis of right shoulder 019 Overview (09/09/2018): Added automatically from request for surgery [id number] Incomplete tear of right rotator cuff 09/09/2018 Overview (09/09/2018): Added automatically from request for surgery [id number] Skin sensation disturbance 08/29/2013 Overview (10/29/2016): SKIN [...] on file 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
--- OUTSIDE RECORDS SUMMARY | 2025-06-20 08:02 | XMS_ITS | Clinical Summary ---
Author Organization [facility] [employer] Address [address] [place] [address] Care Team Providers Care Hand Molder Meat Name Role Phone Unavailable Primary Care Provider Unavailabl e Source Comments [facility] [employer],non-owned Affiliates and Associated Physician Practices is amultiple site organization consisting of ambulatory clinics and hospital sitesin [place], [place], [place] and [place]. This disclosure is being madepursuant to the Care Everywhere program and may not contain all information available regarding this patient. 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
[2025-06-25 16:07] LABS: Carbon Monoxide, Blood 3.3 % (0.0-3.6)
== END 2025-06-20 07:57 | disposition home or self-care (01) ==
PROVIDERS: PCP Internal Medicine; Visit Provider Internal Medicine
DX: R79.81 Abnormal blood-gas level (principal)
CPT/HCPCS: 82375